=== PATIENT | male | born 1975 | race Caucasian/White ===

== ENCOUNTER 2019-07-18 19:45 | Emergency (ER) | payer OTHER ==
[~2019-07-18] VITALS: Ht 180.3 cm; Wt 113.4 kg
[~2019-07-18 19:45] MED LIST: CHANTIX1 MG PO; CYCLOBENZAPRINE5 MG PO; HYDROCODONE-APA1 TA1 PO; NAPROSYN500 MG PO; PROPRANOLOL 1010 MG PO; XANAX 0.5 MG0.5 MG PO
[2019-07-18] MEDS ORDERED: HUMIRA20 MG/0.2 SUBQ (20:05)
[2019-07-18] MEDS ORDERED: METHOTREXATE 22.5 M1 PO (20:05)
[2019-07-18 20:31] LABS: ABSOLUTE BASOPHILS 0.1 thou/uL (0.0-0.2); ABSOLUTE EOSINOPHILS 0.1 thou/uL (0.0-0.7); ABSOLUTE LYMPHOCYTES 2.8 thou/uL (0.8-5.3); ABSOLUTE MONOCYTES 1.1 thou/uL (0.0-1.2); ABSOLUTE NEUTROPHILS 5.5 thou/uL (1.6-8.1); EOSINOPHILS 1.3 %; HEMATOCRIT 48.9 % (42.0-52.0); HEMOGLOBIN 16.5 gm/dL (14.0-18.0); LYMPHOCYTES 29.2 %; MCH 31.6 pg (26.0-34.0); MCHC 33.7 g/dL (28.0-37.0); MCV 93.6 fL (80.0-100.0); MONOCYTES 11.4 %; MPV 7.5 fl. (7.2-11.1); NUCLEATED RBCS 0 /100WBC; PLATELET COUNT* 268 thou/uL (150-400); POLYS 57.1 %; RBC 5.23 mil/uL (4.50-6.00); RDW-CV 14.7 % (10.5-14.5); WBC 9.6 thou/uL (4.0-11.0)
[2019-07-18 20:39] LABS: CALCIUM 9.1 mg/dL (8.5-10.1); CREATININE 1.3 mg/dL (0.6-1.3)
[2019-07-18 20:44] LABS: ALBUMIN 4.4 g/dL (3.4-5.0); TOTAL BILIRUBIN 0.8 mg/dL (<0.1-1.0); TOTAL PROTEIN 7.3 g/dL (6.4-8.2)
[2019-07-18 23:02] LABS: ESR (SEDRATE) 1 mm/hr (0-15)
[2019-07-18] MEDS ORDERED: ULTRAM 50MG TAB50 MG PO (23:48)
[2019-07-19 00:08] VITALS: BP 125/80
== END 2019-07-19 00:08 | disposition home or self-care (01) ==
LOC: M.ERS 19:45
PROVIDERS: Personal Emergency Response Attendant
DX: R51 Headache (principal); I10 Essential (primary) hypertension; Z87.891 Personal history of nicotine dependence